=== PATIENT | male | born 1975 | race American Indian/Alaskan Native ===

== ENCOUNTER 2016-12-19 18:46 | Emergency (ER) | payer MEDICAID ==
[2016-12-19 19:02] VITALS: TEMP 98.6
[2016-12-19] MEDS ORDERED: Aspirin 325 mg EC Tablets PO STA (19:03)
[2016-12-19] MEDS ORDERED: Nitroglycerin 2% Ointment Foilpak UD TOP STA (19:03)
[2016-12-19] MEDS ORDERED: Morphine 4 MG/ML VIAL IV STA (19:04)
[2016-12-19] MEDS ORDERED: Nitroglycerin 2% Ointment Foilpak UD TOP ONE (19:43)
[2016-12-19] MEDS ORDERED: Morphine 4 MG/ML VIAL ONE (19:43)
[2016-12-19] MEDS ORDERED: Aspirin 325 mg EC Tablets PO ONE (19:43)
[2016-12-19 19:46] LABS: BASO % 0.3 % (0.0-2.0); EOS % 0.1 % (0.0-4.0); HEMOGLOBIN 14.9 g/dL (12.0-18.0); LYMPH # 0.5 K/uL (1.0-4.3); LYMPH % 6.9 % (20.0-40.0); MEAN CELL VOLUME 91.1 fL (80.0-94.0); MEAN CORPUSCULAR HEMOGLOBIN 29.5 pg (27.0-31.0); MEAN CORPUSCULAR HGB CONC 32.4 g/dL (33.0-37.0); MEAN PLATELET VOLUME 9.5 fL (7.2-11.7); MONO # 0.3 K/uL (0.0-0.8); NEUT % 88.7 % (50.0-75.0); NRBC % 0.1 % (0.0-2.0); PLATELET COUNT 167 K/uL (130-400); RBC 5.06 Mil/uL (4.40-5.90); RED CELL DISTRIBUTION WIDTH 13.2 % (11.5-14.5); WHITE BLOOD COUNT 6.7 K/uL (4.8-10.8)
[2016-12-19 19:53] LABS: ALBUMIN 4.6 g/dL (3.5-5.0)
[2016-12-19 19:54] LABS: D DIMER < 200 ng/mlDDU (0-243); INR 1.1; PARTIAL THROMBOPLASTIN TIME 31 SECONDS (21-34); PROTHROMBIN TIME 12.2 SECONDS (9.7-12.2)
[2016-12-19 19:55] LABS: GFR AFRICAN-AMERICAN > 60; GFR NON-AFRICAN AMERICAN > 60
[2016-12-19 19:56] LABS: ALB/GLOB RATIO 1.2 (1.0-2.1); ALT/SGPT 51 U/L (21-72); AST/SGOT 42 U/L (17-59); BLOOD UREA NITROGEN 8 mg/dL (9-20); CALCIUM 9.3 mg/dl (8.6-10.4)
[2016-12-19 20:02] LABS: URINE BACTERIA RARE (<OCC); URINE BILIRUBIN NEGATIVE (NEGATIVE); URINE BLOOD NEGATIVE (NEGATIVE); URINE CLARITY Clear (Clear); URINE COLOR Yellow (YELLOW); URINE GLUCOSE (UA) NORMAL (Normal); URINE LEUKOCYTE ESTERASE NEG Leu/uL (Negative); URINE NITRATE NEGATIVE (NEGATIVE); URINE PROTEIN 1+ mg/dL (NEGATIVE); URINE UROBILINOGEN NORMAL mg/dL (0.2-1.0)
[2016-12-19 20:07] LABS: BARBITURATES, UR NEGATIVE (NEGATIVE)
[2016-12-19 20:08] LABS: BENZODIAZEPINES, UR NEGATIVE (NEGATIVE)
[2016-12-19 20:09] LABS: B-TYPE NATRIURETIC PEPTIDE 228 pg/mL (0-450)
[2016-12-19 20:11] LABS: OPIATES, UR NEGATIVE (NEGATIVE); PHENCYCLIDINE, UR NEGATIVE (NEGATIVE)
--- NOTE | 2016-12-19 20:13 | C.PDOC ---
History Of Present Illness A 41 y/o M with a Hx of HTN non-compliant with HTN meds, c/o crampy periumbilical pain, nausea, and vomiting since this morning. Denies fever, chills, diarrhea, SOB, lightheadedness, dizziness, palpitations, diaphoresis, or any other complaints. Admits to smoking marijuana today Time Seen by Provider: 12/19/16 19:02 Chief Complaint (Nursing): Abdominal Pain History Per: Patient History/Exam Limitations: no limitations Onset/Duration Of Symptoms: Hrs Current Symptoms Are (Timing): Still Present Severity: Mild Radiation Of Pain To:: None Associated Symptoms: Nausea, Vomiting. denies: Fever, Chills Recent travel outside of the [place]: No Additional History Per: Patient Past Medical History Reviewed: Historical Data, Nursing Documentation, Vital Signs Vital Signs: Last Vital Signs Temp 98.6 F 12/19/16 18:59 Pulse 54 L 12/19/16 19:03 Resp 12 12/19/16 19:03 BP 219/111 H 12/19/16 19:23 Pulse Ox 100 12/19/16 20:59 - Medical History PMH: Asthma, HTN Family History: States: Unknown Family Hx - Social History Hx Alcohol Use: No Hx Substance Use: No - Immunization History Hx Tetanus Toxoid Vaccination: No Hx Influenza Vaccination: Yes Hx Pneumococcal Vaccination: No Review Of Systems Except As Marked, All Systems Reviewed And Found Negative. Constitutional: Negative for: Fever, Chills, Sweats Cardiovascular: Positive for: Chest Pain. Negative for: Palpitations, Light Headedness Respiratory: Negative for: Shortness of Breath Gastrointestinal: Positive for: Nausea, Vomiting. Negative for: Diarrhea Neurological: Negative for: Dizziness Physical Exam - Physical Exam Appears: Non-toxic, No Acute Distress, Other (Poorly responsive, Large male, hypersomulent, arousable to noxious stimuli.) Skin: Warm, Dry Head: Atraumatic, Normacephalic Eye(s): bilateral: Normal Inspection Oral Mucosa: Moist Cardiovascular: Rhythm Regular Respiratory: Normal Breath Sounds, No Accessory Muscle Use, No Rales, No Rhonchi , No Wheezing Gastrointestinal/Abdominal: Soft, Tenderness (Epigastric area), No Guarding, No Rebound Back: Normal Inspection, No CVA Tenderness Neurological/Psych: Oriented x3, Normal Speech, Other (No focal deficit) ED Course And Treatment - Laboratory Results Result Diagrams: 12/19/16 19:42 12/19/16 19:42 Lab Interpretation: Normal (d-dimer neg, trop neg, ua neg, tox + THC) ECG: Interpreted By Me ECG Rhythm: Sinus Rhythm ECG Interpretation: Normal Rate From EC O2 Sat by Pulse Oximetry: 100 (RA) Pulse Ox Interpretation: Normal - Radiology CXR: Interpreted by Me CXR Interpretation: Yes: No Acute Disease, Heart Size (enlarged, ? widened mediastinum) - CT Scan/US CT Head w/o contrast Other Rad Studies (CT/US): Interpreted By Me, Read By Radiologist CT/US Interpretation: IMPRESSION: No acute intracranial abnormality Progress Note: ntp, clonidine. prob venancio due to athleticism, no acute EKG change. Reevaluation Time: 22:33 Reassessment Condition: Improved Medical Decision Making Medical Decision Making: Impression: A 41 y/o M with a Hx of HTN, c/o chest pain, nausea, vomiting since this morning. Plans: -CT Head w/o -CT dissection study -EKG -CXR -Ecotrin -Cataprs -Morphine -Zofran -protonix -Nitro -IV fluids -Reassess poorly controlled HTN, cardiomegaly and bradycardia prob related to athleticism. Start Vasotec and opt f/u. ++ HTN and widened mediastinum on CXR concerning for dissection, study neg. enteritis, prob food related. diminished mental status, normal labs and head CT, prob due to marijuana abuse today. Disposition Doctor Will See Patient In The: Office Counseled Patient/Family Regarding: Studies Performed, Diagnosis - Disposition Disposition: HOME/ ROUTINE Disposition Time: 22:41 Condition: GOOD - Clinical Impression Clinical Impression: Abdominal colic, Hypertension - Scribe Statement The provider has reviewed the documentation as recorded by the Scribe Román grant All medical record entries made by the Christyibe were at my direction and personally dictated by me. I have reviewed the chart and agree that the record accurately reflects my personal performance of the history, physical exam, medical decision making, and the department course for this patient. I have also personally directed, reviewed, and agree with the discharge instructions and disposition.
[2016-12-19] MEDS ORDERED: Iodixanol 320 MG/ML 100 ML BOTTLE IV ONE (20:19)
--- NOTE | 2016-12-19 20:56 | CT ---
EXAM: CT Head Without Intravenous Contrast CLINICAL HISTORY: 41 years old, male; Signs and symptoms; Altered mental status/memory loss; Confusion or disorientation; Additional info: Change of md, ++htn TECHNIQUE: Axial computed tomography images of the head/brain without intravenous contrast. This CT exam was performed using one or more of the following dose reduction techniques: automated exposure control, adjustment of the mA and/or kV according to patient size, and/or use of iterative reconstruction technique. EXAM DATE/TIME: 12/19/2016 8:25 PM COMPARISON: There are no prior studies for comparison. FINDINGS: Brain: Ventricles are normal in size and configuration. There is no midline shift. There are no intra-axial or extra-axial mass lesions or areas of hemorrhage. There are no abnormal fluid collections. Renee-white differentiation is maintained. Ventricles: See above. Bones: Cranial vault is intact. Soft tissues: unremarkable Sinuses: There is no acute sinusitis. Ears and mastoids: Middle ears and mastoids are unremarkable Orbits: Orbital contents are unremarkable. IMPRESSION: No acute intracranial abnormality
[2016-12-19 21:42] LABS: LYMPHOCYTE 10 % (20-40); MONOCYTE 8 % (0-10); NEUTROPHIL 82 % (50-75); PLATELET ESTIMATE NORMAL (NORMAL); TOTAL CELLS COUNTED 100
[2016-12-19 21:44] LABS: ANISOCYTOSIS SLIGHT; LARGE PLATELETS PRESENT
--- NOTE | 2016-12-19 22:01 | CT ---
EXAM: CT Chest Without and With Intravenous Contrast CLINICAL HISTORY: 41 years old, male; Pain; Abdominal pain; Epigastric; Other: Widened mediastinum; Additional info: Cp/widened mediastinum, ++htn, n/v/epigastric TECHNIQUE: Axial computed tomography images of the chest without and with intravenous contrast. This CT exam was performed using one or more of the following dose reduction techniques: automated exposure control, adjustment of the mA and/or kV according to patient size, and/or use of iterative reconstruction technique. Coronal and sagittal reformatted images were created and reviewed. CONTRAST: 100 mL of [id number] administered intravenously. COMPARISON: There are no prior studies for comparison. FINDINGS: Lungs and pleural spaces: Trachea and main bronchi are patent. There is no focal consolidation. There is dependent atelectasis greatest at the lung bases. There are no effusions. Heart and Vasculature: The heart is mildly enlarged.There is trace fluid in pericardial recesses.Pulmonary vessels are unremarkable.There is no aneurysm or dissection. There is minimal atherosclerotic calcification in the aortic arch. There is perfusion of the 3 arch vessels Mediastinum: There is no mediastinal adenopathy. There is no hilar adenopathy. Esophagus is unremarkable. Thyroid: Thyroid is unremarkable Bones/joints: There are no acute osseous abnormalities. There is minimal superior endplate deformity T5, T6, T7. Soft tissues: unremarkable Upper abdomen: Refer to following report for abdominal findings IMPRESSION: No aortic aneurysm or dissection; mild cardiomegaly; no focal pneumonia Additional findings as described above. EXAM: CT Abdomen and Pelvis Without and With Intravenous Contrast CLINICAL HISTORY: 41 years old, male; Pain; Abdominal pain; Epigastric; Other: Widened mediastinum; Additional info: Cp/widened mediastinum, ++htn, n/v/epigastric TECHNIQUE: Axial computed tomography images of the abdomen and pelvis without and with intravenous contrast. This CT exam was performed using one or more of the following dose reduction techniques: automated exposure control, adjustment of the mA and/or kV according to patient size, and/or use of iterative reconstruction technique. Coronal and sagittal reformatted images were created and reviewed. CONTRAST: 100 mL of [id number] administered intravenously. COMPARISON: There are no prior studies for comparison.Exam Date/Time: 12/19/2016 7:30 PM FINDINGS: Lower thorax: Refer to prior report for chest findings ABDOMEN: Liver: unremarkable Gallbladder and bile ducts: unremarkable Pancreas: unremarkable Spleen: unremarkable Adrenals: unremarkable Kidneys and ureters: unremarkable Stomach and bowel: Stomach is partially distended. Rotation is normal. Ere are mildly distended small bowel loops. There is no obstruction. Terminal ileum is unremarkable. Appendix is unremarkable.Colon is incompletely distended which limits evaluation. There is minimal diverticulosis Appendix: See stomach and bowel PELVIS: Bladder: unremarkable Reproductive: Seminal vesicles and prostate are unremarkable. ABDOMEN and PELVIS: Intraperitoneal space: There is no free air or free fluid. Bones/joints: There are no acute osseous abnormalities Soft tissues: There is a small fat containing umbilical hernia. Vasculature: Abdominal aorta is normal in course and caliber. There is minimal atherosclerotic calcification. There is perfusion of all major abdominal aortic branches. Iliacs are unremarkable. Lymph nodes: There is no pathologic adenopathy. IMPRESSION: No acute solid visceral or bowel abnormality, no aortic aneurysm or dissection
[2016-12-19 23:02] VITALS: BP 185/115; PULSE 58; RESP 16; O2SAT 99
--- NOTE | 2016-12-20 10:08 | RAD ---
PROCEDURE: CHEST RADIOGRAPH, 1 VIEW HISTORY: Shortness of breath COMPARISON: None available. FINDINGS: LUNGS: Mild venous congestion. Tortuous aorta. PLEURA: No pneumothorax or pleural fluid seen. CARDIOVASCULAR: As above. OSSEOUS STRUCTURES: No significant abnormalities. VISUALIZED UPPER ABDOMEN: Normal. OTHER FINDINGS: None. IMPRESSION: Tortuous and ectatic aorta. Clinical correlation. Mild venous congestion.
--- NOTE | 2016-12-20 14:01 | CARD ---
APPROVED REPORT EKG Measurement Heart [id number] MD [id number] <Conclusion> Sinus bradycardia with sinus arrhythmia Minimal voltage criteria for LVH, may be normal variant Borderline ECG
== END 2016-12-19 23:02 | disposition home or self-care (01) ==
LOC: C.ER 18:46
DX: R10.84 Generalized abdominal pain (principal); I10 Essential (primary) hypertension
CPT/HCPCS: 70450; 71010; 71275; 74175; 80053; 80320; 80324; 80345; 80346; 80349; 80353; 80358; 80361; 81001; 83880; 83992; 84484; 85025; 85378; 85610; 85730; 93005; 96374; 96375; 99285; C9113; J2270; J2405; Q9967

== ENCOUNTER 2017-08-30 08:57 | Observation (INO) | payer MEDICAID ==
--- NOTE | 2017-08-30 09:53 | C.PDOC ---
History Of Present Illness 42-year-old male, PMHx includes Hypertension, GERD and Asthma, presents to the emergency department with complaints of high blood pressure this morning, and three episodes of non-blood/non-bilious vomiting. Patient was seen in [facility] two days ago for same complaint, and signed out AMA. Patient not compliant with blood pressure meds. Denies headaches, dizziness, nausea/vomiting, numbness/ weakness or chest pain. Time Seen by Provider: 08/30/17 09:36 Chief Complaint (Nursing): High Blood Pressure History Per: Patient History/Exam Limitations: no limitations Past Medical History Reviewed: Historical Data, Nursing Documentation, Vital Signs Vital Signs: Last Vital Signs Temp 98.8 F 08/30/17 15:34 Pulse 87 08/30/17 15:34 Resp 20 08/30/17 15:34 BP 147/92 H 08/30/17 18:20 Pulse Ox 98 08/30/17 18:45 - Medical History PMH: Asthma, HTN Family History: States: No Known Family Hx - Social History Hx Alcohol Use: No Hx Substance Use: Yes - Immunization History Hx Tetanus Toxoid Vaccination: No Hx Influenza Vaccination: Yes Hx Pneumococcal Vaccination: No Review Of Systems Except As Marked, All Systems Reviewed And Found Negative. Constitutional: Negative for: Fever Respiratory: Negative for: Shortness of Breath Gastrointestinal: Positive for: Nausea, Vomiting Skin: Negative for: Rash Neurological: Negative for: Weakness, Numbness, Headache, Dizziness Physical Exam - Physical Exam Appears: Non-toxic, No Acute Distress Skin: Normal Color, Warm, Dry, No Rash Head: Normacephalic Eye(s): bilateral: Normal Inspection, PERRL, EOMI Nose: Normal Oral Mucosa: Moist Neck: Normal ROM Chest: Symmetrical Cardiovascular: Rhythm Regular, No Murmur Respiratory: Normal Breath Sounds, No Accessory Muscle Use Gastrointestinal/Abdominal: Normal Exam, Bowel Sounds Extremity: Normal ROM, No Deformity, No Swelling Neurological/Psych: Oriented x3, Normal Speech ED Course And Treatment - Laboratory Results Result Diagrams: 08/30/17 09:55 08/30/17 09:55 ECG: Interpreted By Me, Viewed By Me ECG Rhythm: Sinus Rhythm ECG Interpretation: No Acute Changes Rate From EC O2 Sat by Pulse Oximetry: 98 (RA) Pulse Ox Interpretation: Normal Critical Care Time - Critical Care Note Total Time (in mins): 40 Documented critical care: time excludes all time spent performing seperately billable procedures. Medical Decision Making Medical Decision Making: Plan: * EKG * Labs * Chest X-Ray * Aspirin, KCl, Pepcid, Labetalol, Zofran * Reassess and Disposition * pt. bp elevated and treated with labetalol Discussed with admitting doctor and will admit to hospital. Disposition Discussed With DrAndi: Abdias Hauser Counseled Patient/Family Regarding: Studies Performed, Diagnosis - Disposition Disposition: HOSPITALIZED Disposition Time: 10:36 Condition: FAIR - Clinical Impression Clinical Impression: Chest pain, Hypertensive urgency - Scribe Statement The provider has reviewed the documentation as recorded by the Scribe (Homar Duran) All medical record entries made by the Scribe were at my direction and personally dictated by me. I have reviewed the chart and agree that the record accurately reflects my personal performance of the history, physical exam, medical decision making, and the department course for this patient. I have also personally directed, reviewed, and agree with the discharge instructions and disposition.
[2017-08-30 10:01] LABS: BASO # 0.1 K/uL (0.0-0.2); BASO % 0.7 % (0.0-2.0); EOS % 0.6 % (0.0-4.0); HEMOGLOBIN 14.6 g/dL (12.0-18.0); LYMPH # 0.6 K/uL (1.0-4.3); LYMPH % 9.2 % (20.0-40.0); MEAN CELL VOLUME 90.4 fL (80.0-94.0); MEAN CORPUSCULAR HEMOGLOBIN 30.7 pg (27.0-31.0); MEAN CORPUSCULAR HGB CONC 33.9 g/dL (33.0-37.0); MEAN PLATELET VOLUME 8.5 fL (7.2-11.7); MONO # 0.6 K/uL (0.0-0.8); MONO % 8.8 % (0.0-10.0); NEUT # 5.5 K/uL (1.8-7.0); NEUT % 80.7 % (50.0-75.0); NRBC % 0.1 % (0.0-2.0); PLATELET COUNT 226 K/uL (130-400); RBC 4.76 Mil/uL (4.40-5.90); RED CELL DISTRIBUTION WIDTH 13.9 % (11.5-14.5); WHITE BLOOD COUNT 6.9 K/uL (4.8-10.8)
[2017-08-30 10:15] LABS: ALB/GLOB RATIO 1.2 (1.0-2.1); ALBUMIN 4.8 g/dL (3.5-5.0); ALT/SGPT 37 U/L (21-72); AST/SGOT 46 U/L (17-59); BLOOD UREA NITROGEN 19 mg/dL (9-20); CALCIUM 9.2 mg/dl (8.6-10.4); GFR AFRICAN-AMERICAN > 60; GFR NON-AFRICAN AMERICAN > 60; LIPASE 48 U/L (23-300)
[2017-08-30] MEDS ORDERED: Labetalol 5 mg/ml Inj 20ML IV STA (10:22)
[2017-08-30 10:25] LABS: B-TYPE NATRIURETIC PEPTIDE 45.4 pg/mL (0-450)
[2017-08-30] MEDS ORDERED: Potassium Chloride 20 mEq ER Tab PO SCH (10:30)
[2017-08-30] MEDS ORDERED: Potassium Chloride 20 mEq ER Tab PO ONE (10:37)
--- NOTE | 2017-08-30 10:38 | RAD ---
HISTORY: chest pain COMPARISON: Chest x-ray performed 12/19/16 TECHNIQUE: Chest, one view. FINDINGS: Examination limited by habitus. LUNGS: No focal consolidation. Please note that chest x-ray has limited sensitivity for the detection of pulmonary masses. PLEURA: No significant pleural effusion identified. No definite pneumothorax . CARDIOVASCULAR: Heart size appears within normal limits. OSSEOUS STRUCTURES: No acute osseous abnormality identified. VISUALIZED UPPER ABDOMEN: Unremarkable. OTHER FINDINGS: None. IMPRESSION: No focal consolidation identified.
[2017-08-30 10:48] LABS: EOSINOPHIL 1 % (0-4); LYMPHOCYTE 9 % (20-40); MONOCYTE 5 % (0-10); NEUTROPHIL 85 % (50-75); PLATELET ESTIMATE NORMAL (NORMAL); TOTAL CELLS COUNTED 100
[2017-08-30] MEDS ORDERED: Labetalol 25mg/5ml Syringe IVP STA (11:16)
[2017-08-30 11:31] LABS: BARBITURATES, UR NEGATIVE (NEGATIVE); BENZODIAZEPINES, UR NEGATIVE (NEGATIVE); OPIATES, UR NEGATIVE (NEGATIVE); PHENCYCLIDINE, UR NEGATIVE (NEGATIVE)
[2017-08-30] MEDS: Nitroglycerin 2% Ointment Foilpak UD TOP PRN (14:38)
[2017-08-30 14:48] LABS: HDL CHOLESTEROL 44 mg/dL (30-70)
[2017-08-30 14:59] LABS: LDL CHOLESTEROL 124 mg/dL (0-129)
[2017-08-30 15:01] LABS: CK-MB 0.95 ng/mL (0.0-3.38)
[2017-08-30] MEDS: Potassium Chloride 20 mEq ER Tab PO SCH (20:15)
[2017-08-30 23:26] LABS: CK-MB 0.75 ng/mL (0.0-3.38)
--- NOTE | 2017-08-30 23:59 | CP.PCM.HP ---
History of Present Illness - History of Present Illness History of Present Illness: Chief Complaint : Chest pain, High Blood Pressure History Of Present Illness 42-year-old AA male, PMHx includes Hypertension, GERD and Asthma,non complaint to diet and medication and he drinks ETOH excessively he denies any other substance abuse, presents to the emergency department with complaints of left chest wall dull pain since yesterday, he checked his B.P to be high this morning, and three episodes of non-blood/non-bilious vomiting. Patient was seen in [facility] two days ago for same complaint, and signed out AMA. Patient not compliant with blood pressure meds. Denies headaches, dizziness, nausea/vomiting , numbness/weakness or chest pain. Present on Admission - Present on Admission Any Indicators Present on Admission: Yes Past Patient History - Infectious Disease Hx of Infectious Diseases: None - Past Social History Smoking Status: Current Some Days Smoker - CARDIAC Hx Hypertension: Yes - PULMONARY Hx Asthma: Yes - MUSCULOSKELETAL/RHEUMATOLOGICAL Hx Falls: No - PSYCHIATRIC Hx Substance Use: Yes - SURGICAL HISTORY Hx Surgeries: Yes Hx Herniorrhaphy: Yes - ANESTHESIA Hx Anesthesia: Yes Meds Home Medications: Home Medication List Medication Instructions Recorded Confirmed Type Losartan [Cozaar] 50 mg PO DAILY #30 tab 08/31/17 Rx diltiaZEM CD [Cardizem CD] 120 mg PO DAILY #30 cap 08/31/17 Rx hydrALAZINE [Apresoline] 50 mg PO Q8 #90 tab 08/31/17 Rx Allergies/Adverse Reactions: Allergies Allergy/AdvReac Type Severity Reaction Status Date / Time FISH Allergy Verified 08/30/17 09:24 shellfish derived Allergy Verified 08/30/17 09:24 Physical Exam - Constitutional Appears: No Acute Distress - Head Exam Head Exam: ATRAUMATIC, NORMAL INSPECTION, NORMOCEPHALIC - Eye Exam Eye Exam: EOMI, Normal appearance, PERRL Pupil Exam: NORMAL ACCOMODATION, PERRL - Respiratory Exam Respiratory Exam: Clear to Auscultation Bilateral, NORMAL BREATHING PATTERN - Cardiovascular Exam Cardiovascular Exam: REGULAR RHYTHM, +S1, +S2, +S4 - GI/Abdominal Exam GI & Abdominal Exam: Normal Bowel Sounds, Soft. absent: Tenderness - Neurological Exam Neurological exam: Alert, CN II-XII Intact, Normal Gait, Oriented x3, Reflexes Normal - Psychiatric Exam Psychiatric exam: Normal Affect, Normal Mood - Skin Skin Exam: Dry, Intact, Normal Color, Warm Results - Vital Signs Recent Vital Signs: Last Vital Signs Temp 98.8 F 08/30/17 15:34 Pulse 99 H 08/30/17 22:53 Resp 20 08/30/17 15:34 BP 147/92 H 08/30/17 18:20 Pulse Ox 98 08/30/17 18:46 - Labs Result Diagrams: 08/30/17 09:55 08/31/17 07:12 Labs: Laboratory Results - last 24 hr 08/30/17 08/30/17 08/30/17 09:40 09:55 09:55 WBC 6.9 RBC 4.76 Hgb 14.6 Hct 43.0 MCV 90.4 MCH 30.7 MCHC 33.9 RDW 13.9 Plt Count 226 MPV 8.5 Neut % (Auto) 80.7 H Lymph % (Auto) 9.2 L Hyde % (Auto) 8.8 Eos % (Auto) 0.6 Baso % (Auto) 0.7 Neut # (Auto) 5.5 Lymph # (Auto) 0.6 L Hyde # (Auto) 0.6 Eos # (Auto) 0.0 Baso # (Auto) 0.1 Neutrophils % (Manual) 85 H Lymphocytes % (Manual) 9 L Monocytes % (Manual) 5 Eosinophils % (Manual) 1 Platelet Estimate Normal RBC Morphology Normal Sodium 138 Potassium 3.1 L Chloride 99 Carbon Dioxide 22 Anion Gap 21 H BUN 19 Creatinine 1.2 Est GFR ( Amer) > 60 Est GFR (Non-Af Amer) > 60 POC Glucose (mg/dL) 108 Random Glucose 125 H Calcium 9.2 Total Bilirubin 1.3 AST 46 ALT 37 Alkaline Phosphatase 84 Total Creatine Kinase CK-MB (Mass) Troponin I < 0.0120 NT-Pro-B Natriuret Pep 45.4 Total Protein 8.7 H Albumin 4.8 Globulin 3.9 Albumin/Globulin Ratio 1.2 Triglycerides Cholesterol LDL Cholesterol Direct HDL Cholesterol Lipase 48 Urine Opiates Screen Urine Methadone Screen Ur Barbiturates Screen Ur Phencyclidine Scrn Ur Amphetamines Screen U Benzodiazepines Scrn U Oth Cocaine Metabols U Cannabinoids Screen 08/30/17 08/30/17 08/30/17 10:57 14:11 22:57 WBC RBC Hgb Hct MCV MCH MCHC RDW Plt Count MPV Neut % (Auto) Lymph % (Auto) Hyde % (Auto) Eos % (Auto) Baso % (Auto) Neut # (Auto) Lymph # (Auto) Hyde # (Auto) Eos # (Auto) Baso # (Auto) Neutrophils % (Manual) Lymphocytes % (Manual) Monocytes % (Manual) Eosinophils % (Manual) Platelet Estimate RBC Morphology Sodium Potassium Chloride Carbon Dioxide Anion Gap BUN Creatinine Est GFR ( Amer) Est GFR (Non-Af Amer) POC Glucose (mg/dL) Random Glucose Calcium Total Bilirubin AST ALT Alkaline Phosphatase Total Creatine Kinase 212 H 196 H CK-MB (Mass) 0.95 0.75 Troponin I < 0.0120 < 0.0120 NT-Pro-B Natriuret Pep Total Protein Albumin Globulin Albumin/Globulin Ratio Triglycerides 53 Cholesterol 195 LDL Cholesterol Direct 124 HDL Cholesterol 44 Lipase Urine Opiates Screen Negative Urine Methadone Screen Negative Ur Barbiturates Screen Negative Ur Phencyclidine Scrn Negative Ur Amphetamines Screen Negative U Benzodiazepines Scrn Negative U Oth Cocaine Metabols Negative U Cannabinoids Screen Positive H Assessment & Plan (1) Chest pain Status: Acute (2) Hypertensive urgency Assessment and Plan: primary HTn changed into accelerated HTN due to non compliance Status: Acute
[2017-08-31] MEDS: Nitroglycerin 2% Ointment Foilpak UD TOP PRN (07:04)
[2017-08-31 07:39] LABS: BLOOD UREA NITROGEN 16 mg/dL (9-20); CALCIUM 9.1 mg/dl (8.6-10.4); GFR AFRICAN-AMERICAN > 60; GFR NON-AFRICAN AMERICAN > 60
[2017-08-31 08:02] VITALS: RESP 18; TEMP 98.7; O2SAT 99
[2017-08-31] MEDS: Potassium Chloride 20 mEq ER Tab PO SCH (09:48)
[2017-08-31] MEDS ORDERED: Potassium Chloride 20 mEq ER Tab PO ONE (10:00)
[2017-08-31] MEDS ORDERED: diltiaZEM 120 mg/24 Hours CD Cap PO SCH (11:30)
[2017-08-31] MEDS: Potassium Chloride 20 mEq/15 ml LIQ UD PO SCH ×3 (11:54→13:43)
[2017-08-31 12:09] VITALS: BP 144/97
--- NOTE | 2017-08-31 12:14 | CARD ---
APPROVED REPORT EKG Measurement Heart [id number] VA [id number] <Conclusion> Normal sinus rhythm Possible Left atrial enlargement Prolonged QT Abnormal ECG
[2017-08-31 13:04] VITALS: PULSE 117
[2017-08-31 14:53] LABS: CK-MB 0.57 ng/mL (0.0-3.38)
--- NOTE | 2017-08-31 23:08 | CP.PCM.DIS ---
Provider - Provider Date of Admission: 08/30/17 10:34 Attending physician: Abdias Hauser MD Hospital Course - Lab Results Lab Results: Most Recent Lab Values WBC 6.9 K/uL (4.8-10.8) 08/30/17 09:55 RBC 4.76 Mil/uL (4.40-5.90) 08/30/17 09:55 Hgb 14.6 g/dL (12.0-18.0) 08/30/17 09:55 Hct 43.0 % (35.0-51.0) 08/30/17 09:55 MCV 90.4 fL (80.0-94.0) 08/30/17 09:55 MCH 30.7 pg (27.0-31.0) 08/30/17 09:55 MCHC 33.9 g/dL (33.0-37.0) 08/30/17 09:55 RDW 13.9 % (11.5-14.5) 08/30/17 09:55 Plt Count 226 K/uL (130-400) 08/30/17 09:55 MPV 8.5 fL (7.2-11.7) 08/30/17 09:55 Neut % (Auto) 80.7 % (50.0-75.0) H 08/30/17 09:55 Lymph % (Auto) 9.2 % (20.0-40.0) L 08/30/17 09:55 Brantley % (Auto) 8.8 % (0.0-10.0) 08/30/17 09:55 Eos % (Auto) 0.6 % (0.0-4.0) 08/30/17 09:55 Baso % (Auto) 0.7 % (0.0-2.0) 08/30/17 09:55 Neut # (Auto) 5.5 K/uL (1.8-7.0) 08/30/17 09:55 Lymph # (Auto) 0.6 K/uL (1.0-4.3) L 08/30/17 09:55 Brantley # (Auto) 0.6 K/uL (0.0-0.8) 08/30/17 09:55 Eos # (Auto) 0.0 K/uL (0.0-0.7) 08/30/17 09:55 Baso # (Auto) 0.1 K/uL (0.0-0.2) 08/30/17 09:55 Neutrophils % (Manual) 85 % (50-75) H 08/30/17 09:55 Lymphocytes % (Manual) 9 % (20-40) L 08/30/17 09:55 Monocytes % (Manual) 5 % (0-10) 08/30/17 09:55 Eosinophils % (Manual) 1 % (0-4) 08/30/17 09:55 Platelet Estimate Normal (NORMAL) 08/30/17 09:55 RBC Morphology Normal 08/30/17 09:55 Sodium 136 mmol/L (132-148) 08/31/17 07:12 Potassium 3.3 mmol/L (3.6-5.2) L 08/31/17 07:12 Chloride 97 mmol/L (98-107) L 08/31/17 07:12 Carbon Dioxide 26 mmol/L (22-30) 08/31/17 07:12 Anion Gap 17 (10-20) 08/31/17 07:12 BUN 16 mg/dL (9-20) 08/31/17 07:12 Creatinine 1.1 mg/dL (0.8-1.5) 08/31/17 07:12 Est GFR ( Amer) > 60 08/31/17 07:12 Est GFR (Non-Af Amer) > 60 08/31/17 07:12 POC Glucose (mg/dL) 108 mg/dL (65-110) 08/30/17 09:40 Random Glucose 134 mg/dL (75-110) H 08/31/17 07:12 Calcium 9.1 mg/dl (8.6-10.4) 08/31/17 07:12 Total Bilirubin 1.3 mg/dL (0.2-1.3) 08/30/17 09:55 AST 46 U/L (17-59) 08/30/17 09:55 ALT 37 U/L (21-72) 08/30/17 09:55 Alkaline Phosphatase 84 U/L (38-126) 08/30/17 09:55 Total Creatine Kinase 135 U/L (55-170) 08/31/17 14:15 CK-MB (Mass) 0.57 ng/mL (0.0-3.38) 08/31/17 14:15 Troponin I < 0.0120 ng/mL (0.00-0.120) 08/31/17 14:15 NT-Pro-B Natriuret Pep 45.4 pg/mL (0-450) 08/30/17 09:55 Total Protein 8.7 g/dL (6.3-8.3) H 08/30/17 09:55 Albumin 4.8 g/dL (3.5-5.0) 08/30/17 09:55 Globulin 3.9 gm/dL (2.2-3.9) 08/30/17 09:55 Albumin/Globulin Ratio 1.2 (1.0-2.1) 08/30/17 09:55 Triglycerides 53 mg/dL (0-149) 08/30/17 14:11 Cholesterol 195 mg/dL (0-199) 08/30/17 14:11 LDL Cholesterol Direct 124 mg/dL (0-129) 08/30/17 14:11 HDL Cholesterol 44 mg/dL (30-70) 08/30/17 14:11 Lipase 48 U/L (23-300) 08/30/17 09:55 Urine Opiates Screen Negative (NEGATIVE) 08/30/17 10:57 Urine Methadone Screen Negative (NEGATIVE) 08/30/17 10:57 Ur Barbiturates Screen Negative (NEGATIVE) 08/30/17 10:57 Ur Phencyclidine Scrn Negative (NEGATIVE) 08/30/17 10:57 Ur Amphetamines Screen Negative (NEGATIVE) 08/30/17 10:57 U Benzodiazepines Scrn Negative (NEGATIVE) 08/30/17 10:57 U Oth Cocaine Metabols Negative (NEGATIVE) 08/30/17 10:57 U Cannabinoids Screen Positive (NEGATIVE) H 08/30/17 10:57 - Hospital Course Hospital Course: Pt is feeling better, is for discharge Discharge Plan - Discharge Medications Prescriptions: hydrALAZINE [Apresoline] 50 mg PO Q8 #90 tab diltiaZEM CD [Cardizem CD] 120 mg PO DAILY #30 cap Losartan [Cozaar] 50 mg PO DAILY #30 tab - Follow Up Plan Condition: FAIR Disposition: AGAINST MEDICAL ADVICE
--- NOTE | 2017-09-01 01:51 | CON ---
DATE: REASON FOR CONSULTATION: Uncontrolled hypertension as well as excess burning chest pain. 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 The patient is 42 years old male, who had history of hypertension who was treated as an outpatient for hypertension, with Norvasc and hydralazine by Dr. Vickers. The patient was admitted to [facility] because of abdominal pain. He signed against medical advice and came to [facility] with the same discomfort. The patient and his son denied any abdominal pain, but he pointed to the left subcostal region as the site where he experiences abdominal pain. The patient denies any nausea or vomiting. The patient denies any hematuria or dysuria. The patient did report some retrosternal burning sensation which attributed to his acids. The patient was on omeprazole therapy at home. REVIEW OF SYSTEMS: No fever or chills. No dizziness, no syncope. No retrosternal chest tightness. MEDICATIONS: Current hospital medications: Hydralazine 50 mg q.8 hours, Cardizem CD 120 mg once a day, Cozaar 100 mg once a day, K-Dur 20 mEq daily, Pepcid 20 mg p.o. twice a day, nitroglycerin paste 1 inch q.6 hours. PHYSICAL EXAMINATION: GENERAL: The patient is a middle-aged male, who does not appear to be in any acute distress. VITAL SIGNS: Blood pressure 144/97, heart rate 117, temperature 98.7, respirations 18. HEENT: Normocephalic. NECK: No JVD. CHEST: Clear. HEART: S1 and S2 regular. ABDOMEN: Soft. EXTREMITIES: No edema. Urine drug screen is positive for cannabinoids. SMA-7: Sodium 136, potassium 3.3, chloride 97, CO2 of 26, glucose 134, BUN 16, creatinine 1.1. Four sets of troponins are negative. Lipid profile is within normal limits. EKG revealed sinus rhythm at the rate of 97. Chest x-ray was unremarkable. ASSESSMENT: 1. Abdominal pain. 2. Uncontrolled hypertension. 3. Hypokalemia. RECOMMENDATIONS: Continue hydralazine, Cardizem, Cozaar, subcutaneous heparin, oral K-Dur replacement. I will follow echocardiographic study scheduled to be performed today. Javier Blanc MD
--- NOTE | 2017-09-01 12:58 | CARD ---
APPROVED REPORT EXAM: Two-dimensional and M-mode echocardiogram with Doppler and color Doppler. Other Information Quality : GoodRhythm : INDICATION Chest Pain LVH RISK FACTORS Hypertension 2D DIMENSIONS IVSd1.7 (0.7-1.1cm)LVDd3.5 (3.9-5.9cm) PWd0.8 (0.7-1.1cm)LVDs2.3 (2.5-4.0cm) FS (%) 34.6 %LVEF (%)64.8 (>50%) M-Mode DIMENSIONS Left Atrium (MM)3.23 (2.5-4.0cm)Aortic Root4.52 (2.2-3.7cm) Aortic Cusp Exc.2.72 (1.5-2.0cm) Mitral Valve MV E Udrhxxff78.0cm/sMV A Gnwqztdk35.0cm/sE/A ratio0.7 TDI E/Lateral E'0.0E/Medial E'0.0 Tricuspid Valve TR Peak Twehcsor287py/sTR Peak Gr.99oyKuNQOT98vsQq LEFT VENTRICLE The left ventricle is normal size. There is mild concentric left ventricular hypertrophy. The left ventricular function is normal. The left ventricular ejection fraction is within the normal range. There is normal LV segmental wall motion. The left ventricular diastolic function is normal. Transmitral Doppler flow pattern is Grade I-abnormal relaxation pattern. No left ventricle thrombus noted on this study. There is no ventricular septal defect visualized. There is no left ventricular aneurysm. There is no mass noted in the left ventricle. RIGHT VENTRICLE The right ventricle is normal size. There is normal right ventricular wall thickness. The right ventricular systolic function is normal. ATRIA The left atrium size is normal. The right atrium size is normal. The interatrial septum is intact with no evidence for an atrial septal defect. AORTIC VALVE The aortic valve is normal in structure. No aortic regurgitation is present. There is no aortic valvular stenosis. There is no aortic valvular vegetation. MITRAL VALVE The mitral valve is normal in structure. There is no mitral valve stenosis. There is no mitral valve regurgitation noted. TRICUSPID VALVE The tricuspid valve is normal in structure. There is no tricuspid valve regurgitation noted. PULMONIC VALVE The pulmonary valve is normal in structure. There is no pulmonic valvular regurgitation. GREAT VESSELS The aortic root is normal in size. The ascending aorta is normal in size. The pulmonary artery is normal. The IVC is normal in size and collapses >50% with inspiration. PERICARDIAL EFFUSION There is no pericardial effusion. <Conclusion> There is mild concentric left ventricular hypertrophy. The left ventricular diastolic function is normal. Transmitral Doppler flow pattern is Grade I-abnormal relaxation pattern. LVEF IS 65%.
== END 2017-08-31 15:15 | disposition left against medical advice (07) ==
LOC: C.ER 08:57 → C.9E 10:34 → C.6T 10:51
PROVIDERS: ADMIT Internal Medicine; ATTEND Internal Medicine
DX: I16.0 Hypertensive urgency (principal); I15.8 Other secondary hypertension; E87.6 Hypokalemia; J45.909 Unspecified asthma, uncomplicated; K21.9 Gastro-esophageal reflux disease without esophagitis; Z87.891 Personal history of nicotine dependence; Z91.19 Patient's noncompliance with other medical treatment and regimen
CPT/HCPCS: 36415; 71045; 80048; 80053; 80061; 80324; 80345; 80346; 80349; 80353; 80358; 80361; 82948; 83690; 83880; 83992; 84484; 85025; 93005; 93306; 96374; 96375; 96376; 99285; G0378; J2405

== ENCOUNTER 2018-02-15 12:54 | Observation (INO) | payer MEDICAID ==
[2018-02-15] MEDS ORDERED: Sodium Chloride 0.9% 1,000 ML IV ONE ×2 (13:30→13:31)
--- NOTE | 2018-02-15 13:36 | C.PDOC ---
History Of Present Illness 42 y/o male brought in by EMS for evaluation of dizziness and vomiting, that began suddenly while patient was at work. Patient states that he woke up feeling fine today. Otherwise he denies any SOB, chest pain, numbness, weakness , tingling, severe headache, or visual changes. As per EMS, patient was found twitching and with pinpoint pupils, so Narcan 0.4mg was given en route. Time Seen by Provider: 02/15/18 13:21 Chief Complaint (Nursing): Substance Abuse History Per: Patient History/Exam Limitations: no limitations Onset/Duration Of Symptoms: Hrs Current Symptoms Are (Timing): Still Present Past Medical History Reviewed: Historical Data, Nursing Documentation, Vital Signs Vital Signs: Last Vital Signs Temp 98.3 F 02/15/18 16:41 Pulse 74 02/15/18 16:41 Resp 20 02/15/18 16:41 BP 188/121 H 02/15/18 16:41 Pulse Ox 99 02/15/18 18:33 - Medical History PMH: Asthma, HTN Surgical History: Hernia Repair Family History: States: Unknown Family Hx - Social History Hx Tobacco Use: Yes Hx Alcohol Use: No Hx Substance Use: Yes (marijuana) - Immunization History Hx Tetanus Toxoid Vaccination: No Hx Influenza Vaccination: Yes Hx Pneumococcal Vaccination: No Review Of Systems Constitutional: Positive for: Sweats. Negative for: Fever Cardiovascular: Negative for: Chest Pain Respiratory: Negative for: Shortness of Breath Gastrointestinal: Positive for: Nausea, Vomiting. Negative for: Hematemesis Neurological: Positive for: Dizziness. Negative for: Weakness, Numbness, Incoordination, Headache Physical Exam - Physical Exam Appears: Non-toxic, No Acute Distress, Other (Patient speaking in full sentences , complaining of nausea) Skin: Normal Color, Warm, Diaphoretic Head: Atraumatic, Normacephalic Eye(s): bilateral: Normal Inspection Nose: Normal Oral Mucosa: Moist Neck: Supple Chest: Symmetrical Cardiovascular: Rhythm Regular, No Murmur Respiratory: Normal Breath Sounds, No Rales, No Rhonchi, No Wheezing Gastrointestinal/Abdominal: Bowel Sounds (active), Soft, No Tenderness Back: Normal Inspection, No Vertebral Tenderness Extremity: Bilateral: Atraumatic, Normal Color And Temperature, Normal ROM Pulses: Left Dorsalis Pedis: Normal, Right Dorsalis Pedis: Normal Neurological/Psych: Oriented x3, Normal Speech ED Course And Treatment - Laboratory Results Result Diagrams: 02/15/18 13:45 02/15/18 13:45 Lab Interpretation: No Acute Changes ECG: Interpreted By Me ECG Rhythm: Sinus Rhythm ECG Interpretation: Normal, No Acute Changes Rate From EC O2 Sat by Pulse Oximetry: 99 (RA) Pulse Ox Interpretation: Normal - Radiology CXR: Interpreted by Me CXR Interpretation: Yes: No Acute Disease - Other Rad CXR X-Ray: Viewed By Me, Read By Radiologist Interpretation: FINDINGS: LUNGS: Clear. PLEURA: No pneumothorax or pleural fluid seen. CARDIOVASCULAR: Normal. OSSEOUS STRUCTURES: Unchanged. VISUALIZED UPPER ABDOMEN: Normal. OTHER FINDINGS: None. IMPRESSION: No active disease. Progress Note: Patient treated with IVF NSS x 2 liters, zofran and maalox. Treated with hydralizine 50 mg PO. Patient vomiting treated with zofran 4 mg IV. Treated with labetalol 20 mg IV for continued elevated B/P Reassessment Condition: Unchanged - Physician Consult Information Physician Contacted: Abdias Hauser Outcome Of Conversation: admit Medical Decision Making Medical Decision Making: Impression: 42 year old with complaints of nausea, vomiting, dizziness Initial Plan: --CMP --UDS --CBC --reticulocyte count --Urinalysis --IV Fluids --IV Zofran, 4 mg Disposition Discussed With : Abdias Hauser Doctor Will See Patient In The: Hospital - Disposition Disposition: HOSPITALIZED Disposition Time: 18:00 Condition: STABLE - POA Present On Arrival: None - Clinical Impression Clinical Impression: Hypertension, Chest pain - 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 - Scribe Statement The provider has reviewed the documentation as recorded by the Scribe (Talisha Rosa) All medical record entries made by the Scribe were at my direction and personally dictated by me. I have reviewed the chart and agree that the record accurately reflects my personal performance of the history, physical exam, medical decision making, and the department course for this patient. I have also personally directed, reviewed, and agree with the discharge instructions and disposition. Decision To Admit - Pt Status Changed To: Hospital Disposition Of: Observation - . Bed Request Type: Telemetry Admitting Physician: Abdias Hauser Patient Diagnosis: Hypertension, Chest pain
[2018-02-15 13:53] LABS: BASO % 0.5 % (0.0-2.0); EOS % 0.1 % (0.0-4.0); HEMOGLOBIN 14.8 g/dL (12.0-18.0); LYMPH # 0.7 K/uL (1.0-4.3); LYMPH % 12.3 % (20.0-40.0); MEAN CELL VOLUME 89.7 fL (80.0-94.0); MEAN CORPUSCULAR HEMOGLOBIN 30.6 pg (27.0-31.0); MEAN CORPUSCULAR HGB CONC 34.1 g/dL (33.0-37.0); MONO # 0.4 K/uL (0.0-0.8); MONO % 7.3 % (0.0-10.0); NEUT # 4.8 K/uL (1.8-7.0); NEUT % 79.8 % (50.0-75.0); RBC 4.85 Mil/uL (4.40-5.90); RED CELL DISTRIBUTION WIDTH 13.8 % (11.5-14.5); WHITE BLOOD COUNT 6.1 K/uL (4.8-10.8)
[2018-02-15] MEDS ORDERED: Sodium Chloride 0.9% 2,000 ML ONE (13:53)
[2018-02-15 13:55] LABS: URINE BILIRUBIN NEGATIVE (NEGATIVE); URINE BLOOD NEGATIVE (NEGATIVE); URINE CLARITY Clear (Clear); URINE COLOR Yellow (YELLOW); URINE GLUCOSE (UA) NORMAL (Normal); URINE LEUKOCYTE ESTERASE NEG Leu/uL (Negative); URINE PROTEIN 1+ mg/dL (NEGATIVE); URINE UROBILINOGEN NORMAL mg/dL (0.2-1.0)
[2018-02-15 14:02] LABS: ALB/GLOB RATIO 1.3 (1.0-2.1); ALBUMIN 4.8 g/dL (3.5-5.0); ALT/SGPT 47 U/L (21-72); AST/SGOT 39 U/L (17-59); BLOOD UREA NITROGEN 12 mg/dL (9-20); CALCIUM 9.9 mg/dl (8.6-10.4); GFR NON-AFRICAN AMERICAN > 60
[2018-02-15 14:18] LABS: BARBITURATES, UR NEGATIVE (NEGATIVE); BENZODIAZEPINES, UR NEGATIVE (NEGATIVE); OPIATES, UR NEGATIVE (NEGATIVE); PHENCYCLIDINE, UR NEGATIVE (NEGATIVE)
--- NOTE | 2018-02-15 14:18 | RAD ---
Date of service: 02/15/2018 PROCEDURE: CHEST RADIOGRAPH, 1 VIEW HISTORY: SOB COMPARISON: Chest radiograph dated 08/30/2017 FINDINGS: LUNGS: Clear. PLEURA: No pneumothorax or pleural fluid seen. CARDIOVASCULAR: Normal. OSSEOUS STRUCTURES: Unchanged. VISUALIZED UPPER ABDOMEN: Normal. OTHER FINDINGS: None. IMPRESSION: No active disease.
[2018-02-15] MEDS ORDERED: Alum-Mag Hydrox-Simethicone Susp (30 mL) PO STA (16:02)
[2018-02-15] MEDS ORDERED: Aluminum Hydroxide/Magnesium Hydroxide Susp (30 mL) ONE (16:10)
[2018-02-15] MEDS ORDERED: Labetalol 25mg/5ml Syringe IV STA (16:56)
[2018-02-15] MEDS ORDERED: Nitroglycerin 2% Ointment Foilpak UD TOP ONE ×2 (17:45→17:53)
[2018-02-15] MEDS ORDERED: Dextrose 5%-0.225% NS 1,000 ML IV SCH (19:30)
--- NOTE | 2018-02-15 19:39 | CP.PCM.HP ---
Past Patient History - Infectious Disease Hx of Infectious Diseases: None - Past Social History Smoking Status: Current Some Days Smoker - CARDIAC Hx Hypertension: Yes - PULMONARY Hx Asthma: Yes - MUSCULOSKELETAL/RHEUMATOLOGICAL Hx Falls: No - PSYCHIATRIC Hx Substance Use: Yes (marijuana) - SURGICAL HISTORY Hx Surgeries: Yes Hx Herniorrhaphy: Yes - ANESTHESIA Hx Anesthesia: Yes Meds Allergies/Adverse Reactions: Allergies Allergy/AdvReac Type Severity Reaction Status Date / Time FISH Allergy Verified 08/30/17 09:24 shellfish derived Allergy Verified 08/30/17 09:24 Results - Vital Signs Recent Vital Signs: Last Vital Signs Temp 98.2 F 02/15/18 19:30 Pulse 77 02/15/18 19:30 Resp 22 02/15/18 19:30 BP 177/106 H 02/15/18 19:30 Pulse Ox 97 02/15/18 19:30 - Labs Result Diagrams: 02/15/18 13:45 02/15/18 13:45 Labs: Laboratory Results - last 24 hr 02/15/18 02/15/18 02/15/18 13:45 13:45 13:45 WBC 6.1 RBC 4.85 Hgb 14.8 Hct 43.5 MCV 89.7 MCH 30.6 MCHC 34.1 RDW 13.8 Plt Count 213 MPV 9.0 Neut % (Auto) 79.8 H Lymph % (Auto) 12.3 L [place] % (Auto) 7.3 Eos % (Auto) 0.1 Baso % (Auto) 0.5 Neut # (Auto) 4.8 Lymph # (Auto) 0.7 L [place] # (Auto) 0.4 Eos # (Auto) 0.0 Baso # (Auto) 0.0 Retic Count 1.2 Sodium 143 Potassium 3.4 L Chloride 104 Carbon Dioxide 24 Anion Gap 18 BUN 12 Creatinine 0.9 Est GFR ( Amer) > 60 Est GFR (Non-Af Amer) > 60 Random Glucose 125 H Calcium 9.9 Total Bilirubin 0.9 AST 39 ALT 47 Alkaline Phosphatase 89 Total Creatine Kinase CK-MB (Mass) Troponin I Total Protein 8.5 H Albumin 4.8 Globulin 3.6 Albumin/Globulin Ratio 1.3 Urine Color Yellow Urine Clarity Clear Urine pH 9.0 Ur Specific [place] 1.018 Urine Protein 1+ H Urine Glucose (UA) Normal Urine Ketones Negative Urine Blood Negative Urine Nitrate Negative Urine Bilirubin Negative Urine Urobilinogen Normal Ur Leukocyte Esterase Neg Urine WBC (Auto) 1 Urine RBC (Auto) < 1 Urine Opiates Screen Urine Methadone Screen Ur Barbiturates Screen Ur Phencyclidine Scrn Ur Amphetamines Screen U Benzodiazepines Scrn U Oth Cocaine Metabols U Cannabinoids Screen 02/15/18 02/15/18 02/15/18 13:45 14:13 18:07 WBC RBC Hgb Hct MCV MCH MCHC RDW Plt Count MPV Neut % (Auto) Lymph % (Auto) [place] % (Auto) Eos % (Auto) Baso % (Auto) Neut # (Auto) Lymph # (Auto) [place] # (Auto) Eos # (Auto) Baso # (Auto) Retic Count Sodium Potassium Chloride Carbon Dioxide Anion Gap BUN Creatinine Est GFR ( Amer) Est GFR (Non-Af Amer) Random Glucose Calcium Total Bilirubin AST ALT Alkaline Phosphatase Total Creatine Kinase 204 H CK-MB (Mass) 0.90 Troponin I < 0.0120 < 0.0120 Total Protein Albumin Globulin Albumin/Globulin Ratio Urine Color Urine Clarity Urine pH Ur Specific [place] Urine Protein Urine Glucose (UA) Urine Ketones Urine Blood Urine Nitrate Urine Bilirubin Urine Urobilinogen Ur Leukocyte Esterase Urine WBC (Auto) Urine RBC (Auto) Urine Opiates Screen Negative Urine Methadone Screen Negative Ur Barbiturates Screen Negative Ur Phencyclidine Scrn Negative Ur Amphetamines Screen Negative U Benzodiazepines Scrn Negative U Oth Cocaine Metabols Negative U Cannabinoids Screen Positive H
[2018-02-15] MEDS ORDERED: Dextrose 5%/0.33% NS 1,000 ML IV ONE (21:18)
[2018-02-15 21:47] LABS: AMYLASE 144 U/L (30-110); LIPASE 44 U/L (23-300)
[2018-02-15 22:00] VITALS: RESP 20; TEMP 98.7; O2SAT 99
--- NOTE | 2018-02-16 06:48 | CT ---
Date of service: 02/15/2018 PROCEDURE: CT HEAD WITHOUT CONTRAST. HISTORY: headache COMPARISON: None available. TECHNIQUE: Axial computed tomography images were obtained through the head/brain without intravenous contrast. Radiation dose: Total exam DLP = 893 mGy-cm. This CT exam was performed using one or more of the following dose reduction techniques: Automated exposure control, adjustment of the mA and/or kV according to patient size, and/or use of iterative reconstruction technique. FINDINGS: HEMORRHAGE: No intracranial hemorrhage. BRAIN: No mass effect or edema. No atrophy or chronic microvascular ischemic changes. Punctate hypodensities in the bilateral basal ganglia are suggestive for prominent perivascular spaces. VENTRICLES: Unremarkable. No hydrocephalus. CALVARIUM: Unremarkable. PARANASAL SINUSES: Unremarkable as visualized. No significant inflammatory changes. MASTOID AIR CELLS: Unremarkable as visualized. No inflammatory changes. OTHER FINDINGS: None. IMPRESSION: No acute intracranial abnormality. Punctate hypodensities in the bilateral basal ganglia are suggestive for prominent perivascular spaces. If symptoms persist, consider correlation with MRI. These findings were preliminarily reported at 8:31 p.m. on 02/15/[address] Jeff Alvarez from [facility].
[2018-02-16 06:51] VITALS: BP 155/79; PULSE 76
--- NOTE | 2018-02-16 12:20 | HP ---
Copied To: Abdias Hauser MD Attending MD: Abdias Hauser MD CHIEF COMPLAINT: Intense nausea, vomiting, and shaking. HISTORY OF PRESENT ILLNESS: This is a 42-year-old male who has history of hypertension. He is compliant with diet, medication, and he uses marijuana, in his usual state of health, and he is ambulatory and independent in activities of daily living, and the patient came in because he is noncompliant and he has not been taking medication and he developed acute nausea, vomiting, abdominal pain, generalized weakness, tiredness, anorexia, malaise, and fatigue. Along with that, the patient was having shaking. He denies any fever, chills, or rigors. He denies any dysuria, hematuria, or polyuria. He denies any sneezing, itchy eyes, or itchy nose. There is no history of trauma, fall, or loss of consciousness. He denies any history of cough, sore throat, runny nose. He denies any history of polyuria, polydipsia, or polyphagia. He denies any history of hematuria or polyuria. ASSESSMENT: 1. Accelerated hypertension. 2. Substance abuse. 3. Gastritis. 4. Hypokalemia. PLAN: Admit. Detailed orders written. The patient was seen and examined. Discussed with the patient and his . Abdias Hauser MD
--- NOTE | 2018-02-16 13:38 | PN ---
Copied To: Deepak Prince MD Attending MD: Deepak Prince MD DATE: 02/16/2018 LOCATION: 671, bed B. SUBJECTIVE: This is a 42-year-old male seen and examined initially for GI consultation on 02/15/2018, reexamined again early today, was scheduled for upper endoscopy for potential evaluation of the upper GI tract due to the patient's current episode of nausea and vomiting, the patient refused. The entire chart is reviewed including but not limited to the most recent lab and radiology study results, current and the previous medication list, current and the previous medical events, and the latest amylase level was yesterday 144. PHYSICAL EXAMINATION: GENERAL: A 42-year-old male. VITAL SIGNS: Afebrile with pulse of 78, respiratory rate 18 to 20, blood pressure 150/76. HEENT: Showed dry, oral mucous membrane. Nonicteric sclerae. LUNGS: Few scattered crepitations. Decreased air entry at bases. HEART: Positive S1 and S2. ABDOMEN: Soft with slight generalized tenderness. No mass or organomegaly. No rebound tenderness or guarding. EXTREMITIES: Without significant clubbing, cyanosis, or edema. RECTAL: The patient refused. NEUROLOGIC: No significant new reported neurological deficits. IMPRESSION: 1. Re-exacerbation of peptic ulcer disease. 2. Reported episode of nausea, vomiting, and dizziness. The possibility of acute labyrinthitis was raised. 3. Known history of hypertension, bronchial asthma, and abdominal hernia repair. 4. Acute enteritis with elevated amylase level. SUGGESTIONS: 1. Agree with your plan. 2. Antireflux measure. 3. Neurology and MRI of the head to be ordered. 4. Zofran IV. 5. H2 obdulia IV. 6. Abdominal ultrasound with attention to biliary tree and pancreas. 7. Further recommendation to follow. The patient refused any aggressive GI workup or endoscopy. Deepak Prince MD
--- NOTE | 2018-02-16 20:13 | CARD ---
APPROVED REPORT Date of service: 02/15/2018 EKG Measurement Heart [id number] <Conclusion> Normal sinus rhythm Normal ECG
== END 2018-02-16 08:37 | disposition left against medical advice (07) ==
LOC: C.ER 12:54 → C.9E 17:19 → C.6T 18:45
PROVIDERS: ADMIT Internal Medicine; ATTEND Internal Medicine
DX: I10 Essential (primary) hypertension (principal); R42 Dizziness and giddiness; J45.909 Unspecified asthma, uncomplicated; K27.9 Peptic ulcer, site unspecified, unspecified as acute or chronic, without hemorrhage or perforation; K29.70 Gastritis, unspecified, without bleeding; K52.9 Noninfective gastroenteritis and colitis, unspecified; Z87.891 Personal history of nicotine dependence; Z91.19 Patient's noncompliance with other medical treatment and regimen; R07.9 Chest pain, unspecified; R74.8 Abnormal levels of other serum enzymes; E87.6 Hypokalemia; F12.90 Cannabis use, unspecified, uncomplicated
CPT/HCPCS: 70450; 71045; 80053; 80324; 80345; 80346; 80349; 80353; 80358; 80361; 81001; 82150; 83690; 83992; 84484; 85025; 85044; 93005; 96361; 96374; 96375; 96376; 99285; C9113; G0378; J1644; J1885; J1940; J2405; J3480; J7030

== ENCOUNTER 2018-02-17 11:18 | Observation (INO) | payer MEDICAID ==
[2018-02-17 11:23] VITALS: BMI 31.1
[2018-02-17] MEDS ORDERED: Labetalol 5 mg/ml Inj 20ML IV STA ×2 (12:35→13:34)
[2018-02-17] MEDS ORDERED: Aspirin 325 mg EC Tablets PO STA (12:35)
[2018-02-17] MEDS ORDERED: Labetalol 5 mg/ml Inj 20ML IV ONE (12:45)
[2018-02-17 12:48] LABS: BASO # 0.1 K/uL (0.0-0.2); BASO % 0.8 % (0.0-2.0); EOS % 0.3 % (0.0-4.0); HEMOGLOBIN 15.2 g/dL (12.0-18.0); LYMPH # 0.8 K/uL (1.0-4.3); LYMPH % 13.5 % (20.0-40.0); MEAN CELL VOLUME 90.4 fL (80.0-94.0); MEAN CORPUSCULAR HEMOGLOBIN 31.1 pg (27.0-31.0); MEAN CORPUSCULAR HGB CONC 34.4 g/dL (33.0-37.0); MEAN PLATELET VOLUME 9.2 fL (7.2-11.7); MONO # 0.4 K/uL (0.0-0.8); MONO % 6.1 % (0.0-10.0); NEUT # 4.9 K/uL (1.8-7.0); NEUT % 79.3 % (50.0-75.0); RBC 4.91 Mil/uL (4.40-5.90); RED CELL DISTRIBUTION WIDTH 13.8 % (11.5-14.5); WHITE BLOOD COUNT 6.2 K/uL (4.8-10.8)
[2018-02-17 13:11] LABS: ALB/GLOB RATIO 1.3 (1.0-2.1); ALBUMIN 4.8 g/dL (3.5-5.0); ALT/SGPT 40 U/L (21-72); AST/SGOT 49 U/L (17-59); BLOOD UREA NITROGEN 17 mg/dL (9-20); CALCIUM 9.6 mg/dl (8.6-10.4); GFR NON-AFRICAN AMERICAN > 60
--- NOTE | 2018-02-17 13:24 | C.PDOC ---
History Of Present Illness 42-year-old male, presents to the emergency department with complaints of chest pain that started around 09:00 this morning. Patient also notes a Hx of hypertension, and states he feels as though his pressure is high. Pt took his medication this morning, but does not remember the name of it. He denies any nausea/vomiting, fever. Time Seen by Provider: 02/17/18 11:56 Chief Complaint (Nursing): Chest Pain History Per: Patient History/Exam Limitations: no limitations Current Symptoms Are (Timing): Still Present Past Medical History Reviewed: Historical Data, Nursing Documentation, Vital Signs Vital Signs: Last Vital Signs Temp 98.3 F 02/17/18 11:26 Pulse 74 02/17/18 14:27 Resp 16 02/17/18 14:27 BP 194/136 H 02/17/18 14:27 Pulse Ox 96 02/17/18 14:27 - Medical History PMH: Asthma, HTN Surgical History: Hernia Repair Family History: States: No Known Family Hx - Social History Hx Tobacco Use: Yes Hx Alcohol Use: No Hx Substance Use: Yes (marijuana) - Immunization History Hx Tetanus Toxoid Vaccination: No Hx Influenza Vaccination: Yes Hx Pneumococcal Vaccination: No Review Of Systems Constitutional: Negative for: Fever, Chills Cardiovascular: Positive for: Chest Pain. Negative for: Palpitations Respiratory: Negative for: Shortness of Breath Gastrointestinal: Negative for: Nausea, Vomiting Musculoskeletal: Negative for: Neck Pain, Back Pain Neurological: Negative for: Weakness, Numbness, Headache, Dizziness Physical Exam - Physical Exam Appears: Non-toxic, No Acute Distress Skin: Normal Color, Warm, Dry, No Rash Head: Atraumatic Eye(s): bilateral: Normal Inspection Nose: Normal Oral Mucosa: Moist Lips: Normal Appearing Neck: Normal ROM Cardiovascular: Rhythm Regular, No Murmur Respiratory: Normal Breath Sounds, No Accessory Muscle Use Gastrointestinal/Abdominal: Soft, No Tenderness Back: Normal Inspection Extremity: Normal ROM, No Deformity Neurological/Psych: Oriented x3, Normal Speech ED Course And Treatment - Laboratory Results Result Diagrams: 02/17/18 12:43 02/17/18 12:43 ECG: Interpreted By Me, Viewed By Me ECG Rhythm: Sinus Rhythm ECG Interpretation: No Acute Changes Rate From EC O2 Sat by Pulse Oximetry: 96 Pulse Ox Interpretation: Normal (RA) Medical Decision Making Medical Decision Making: patient bp lowered 20-30 percent and okay for admission standpoint to telemetry Disposition Discussed With : Abdias Hauser Doctor Will See Patient In The: Hospital Counseled Patient/Family Regarding: Studies Performed, Diagnosis - Disposition Disposition: HOSPITALIZED Disposition Time: 13:24 Condition: FAIR - Clinical Impression Clinical Impression: Chest pain - Scribe Statement The provider has reviewed the documentation as recorded by the Scribe (Homar Mejia) All medical record entries made by the Scribe were at my direction and personally dictated by me. I have reviewed the chart and agree that the record accurately reflects my personal performance of the history, physical exam, medical decision making, and the department course for this patient. I have also personally directed, reviewed, and agree with the discharge instructions and disposition.
--- NOTE | 2018-02-17 14:13 | RAD ---
Date of service: 02/17/2018 PROCEDURE: CHEST RADIOGRAPH, 1 VIEW HISTORY: SOB COMPARISON: Chest radiograph dated 02/15/2018. FINDINGS: LUNGS: Clear. PLEURA: No pneumothorax or pleural fluid seen. CARDIOVASCULAR: Cardiomediastinal silhouette stably prominent. OSSEOUS STRUCTURES: No significant abnormalities. VISUALIZED UPPER ABDOMEN: Normal. OTHER FINDINGS: None. IMPRESSION: No active disease.
[2018-02-17] MEDS ORDERED: Nitroglycerin 2% Ointment Foilpak UD TOP ONE (14:55)
[2018-02-17] MEDS ORDERED: Nitroglycerin 2% Ointment Foilpak UD TOP STA (14:57)
[2018-02-17 15:58] LABS: BARBITURATES, UR NEGATIVE (NEGATIVE); BENZODIAZEPINES, UR NEGATIVE (NEGATIVE); OPIATES, UR NEGATIVE (NEGATIVE); PHENCYCLIDINE, UR NEGATIVE (NEGATIVE)
[2018-02-17] MEDS ORDERED: Nitroglycerin 2% Ointment Foilpak UD TOP PRN (16:07)
[2018-02-17] MEDS ORDERED: Iodixanol 320 MG/ML 100 ML BOTTLE IV ONE (18:54)
[2018-02-17 20:00] LABS: ABG ALLEN TEST P; ARTERIAL BLOOD GAS HCO3 26.8 mmol/L (21-28); ARTERIAL BLOOD GAS HEMOGLOBIN 14.1 g/dL (11.7-17.4); ARTERIAL BLOOD GAS O2 SAT 99.9 % (95-98); ARTERIAL BLOOD GAS PCO2 31 mm/Hg (35-45); ARTERIAL BLOOD GAS PH 7.51 (7.35-7.45); ARTERIAL BLOOD GAS PO2 120 mm/Hg (80-100); ARTERIAL BLOOD GAS TCO2 25.7 mmol/L (22-28)
--- NOTE | 2018-02-17 20:05 | CP.PCM.CON ---
History of Present Illness - History of Present Illness History of Present Illness: 42 y/o male with pmx of THC abuse, h/o HTN (uncontrolled) works as office worker for [employer] presents to [facility] with c/o nausea/vomitting and SOB. Patient was being managed for HTN. Patient was undergoing PE study with IV contrast. As per patient, when contrast pushed, his right arm became very cold (distal to proximal) and then patient passed out. (+)LOC, deneis any chest pain, denies any abdominal pain, denies any visual disturbance. RAPID response called. Review of Systems - Review of Systems Review of Systems: (+)LOC after IV contrast pushed Past Patient History - Infectious Disease Hx of Infectious Diseases: None - Tetanus Immunizations Tetanus Immunization: Unknown - Past Medical History & Family History Past Medical History?: Yes Pertinent Family History: father (+)HTN - Past Social History Smoking Status: Current Some Days Smoker Chewing Tobacco Use: No Alcohol: > 2 Drinks/Day Drugs: Cannabis - CARDIAC Hx Cardiac Disorders: No Hx Angina: No Hx Atrial Fibrillation: No Hx Cardia Arrhythmia: No Hx Circulatory Problems: No Hx Congestive Heart Failure: No Hx Heart Attack: No Hx Heart Murmur: No Hx Heart Transplant: No Hx Hypertension: Yes Hx Hypotension: No Hx Internal Defibrillator: No Hx Mitral Valve Prolapse: No - PULMONARY Hx Asthma: Yes - MUSCULOSKELETAL/RHEUMATOLOGICAL Hx Falls: No - PSYCHIATRIC Hx Substance Use: Yes (marijuana) - SURGICAL HISTORY Hx Surgeries: Yes Hx Herniorrhaphy: Yes - ANESTHESIA Hx Anesthesia: Yes Meds Allergies/Adverse Reactions: Allergies Allergy/AdvReac Type Severity Reaction Status Date / Time FISH Allergy Verified 08/30/17 09:24 shellfish derived Allergy Verified 08/30/17 09:24 - Medications Medications: Current Medications Acetaminophen (Tylenol 325mg Tab) 650 mg PO Q6 PRN PRN Reason: Headache Last Admin: 02/17/18 16:36 Dose: 650 mg Amlodipine Besylate (Norvasc) 5 mg PO DAILY [facility] Enoxaparin Sodium (Lovenox) 40 mg SC DAILY [facility] Hydralazine HCl (Apresoline) 50 mg PO Q8 [facility] Losartan Potassium (Cozaar) 100 mg PO DAILY [facility] Nitroglycerin (Nitro-Bid 2% Oint) 1 ea TOP Q6H PRN PRN Reason: Systolic Blood Pressure Physical Exam - Head Exam Head Exam: ATRAUMATIC, NORMAL INSPECTION, NORMOCEPHALIC - Eye Exam Eye Exam: EOMI Pupil Exam: NORMAL ACCOMODATION, PERRL - ENT Exam ENT Exam: Mucous Membranes Moist, Normal Exam - Neck Exam Neck exam: Positive for: Normal Inspection - Respiratory Exam Respiratory Exam: Clear to Auscultation Bilateral, NORMAL BREATHING PATTERN - Cardiovascular Exam Cardiovascular Exam: REGULAR RHYTHM, +S1, +S2, +S4 - GI/Abdominal Exam GI & Abdominal Exam: Normal Bowel Sounds, Soft - Extremities Exam Extremities exam: Positive for: normal inspection Results - Vital Signs Recent Vital Signs: Last Vital Signs Temp 98.4 F 02/17/18 16:30 Pulse 96 H 02/17/18 16:30 Resp 20 02/17/18 16:30 BP 158/96 H 02/17/18 18:10 Pulse Ox 98 02/17/18 16:30 - Labs Result Diagrams: 02/17/18 12:43 02/17/18 12:43 Labs: Laboratory Results - last 24 hr 02/17/18 02/17/18 02/17/18 12:43 12:43 15:28 WBC 6.2 RBC 4.91 Hgb 15.2 Hct 44.3 MCV 90.4 MCH 31.1 H MCHC 34.4 RDW 13.8 Plt Count 205 MPV 9.2 Neut % (Auto) 79.3 H Lymph % (Auto) 13.5 L Anderson % (Auto) 6.1 Eos % (Auto) 0.3 Baso % (Auto) 0.8 Neut # (Auto) 4.9 Lymph # (Auto) 0.8 L Anderson # (Auto) 0.4 Eos # (Auto) 0.0 Baso # (Auto) 0.1 Puncture Site pCO2 pO2 HCO3 ABG pH ABG Total CO2 ABG O2 Saturation ABG Base Excess ABG Hemoglobin ABG Carboxyhemoglobin POC ABG HHb (Measured) ABG Methemoglobin Lorenzo Test A-a O2 Difference Respiratory Index Hgb O2 Saturation Liter Flow FiO2 Sodium 139 Potassium 4.4 Chloride 101 Carbon Dioxide 24 Anion Gap 18 BUN 17 Creatinine 1.0 Est GFR ( Amer) > 60 Est GFR (Non-Af Amer) > 60 Random Glucose 108 Calcium 9.6 Total Bilirubin 1.2 AST 49 ALT 40 Alkaline Phosphatase 88 Troponin I 0.0180 NT-Pro-B Natriuret Pep 39.0 Total Protein 8.5 H Albumin 4.8 Globulin 3.7 Albumin/Globulin Ratio 1.3 TSH 3rd Generation 0.56 Urine Opiates Screen Negative Urine Methadone Screen Negative Ur Barbiturates Screen Negative Ur Phencyclidine Scrn Negative Ur Amphetamines Screen Negative U Benzodiazepines Scrn Negative U Oth Cocaine Metabols Negative U Cannabinoids Screen Positive H 02/17/18 19:56 WBC RBC Hgb Hct MCV MCH MCHC RDW Plt Count MPV Neut % (Auto) Lymph % (Auto) Anderson % (Auto) Eos % (Auto) Baso % (Auto) Neut # (Auto) Lymph # (Auto) Anderson # (Auto) Eos # (Auto) Baso # (Auto) Puncture Site Lr pCO2 31 L pO2 120 H HCO3 26.8 ABG pH 7.51 H ABG Total CO2 25.7 ABG O2 Saturation 99.9 H ABG Base Excess 2.4 ABG Hemoglobin 14.1 ABG Carboxyhemoglobin 2.2 H POC ABG HHb (Measured) 0.1 ABG Methemoglobin 1.2 Lorenzo Test P A-a O2 Difference 69.0 Respiratory Index 0.6 Hgb O2 Saturation 96.5 Liter Flow 3.0 FiO2 32.0 Sodium Potassium Chloride Carbon Dioxide Anion Gap BUN Creatinine Est GFR ( Amer) Est GFR (Non-Af Amer) Random Glucose Calcium Total Bilirubin AST ALT Alkaline Phosphatase Troponin I NT-Pro-B Natriuret Pep Total Protein Albumin Globulin Albumin/Globulin Ratio TSH 3rd Generation Urine Opiates Screen Urine Methadone Screen Ur Barbiturates Screen Ur Phencyclidine Scrn Ur Amphetamines Screen U Benzodiazepines Scrn U Oth Cocaine Metabols U Cannabinoids Screen Assessment & Plan - Assessment and Plan (Free Text) Assessment: Vaso vagal syncope after IV contrast: Patient notes he is allergic to shellfish. Patient seems better, vasovagal effect resovled., neurology eval pending -HTN: uncontrolled: continue his anti-hypertensive medications -NPO -IV solumedrol -IVF post IV contrast contineu dvt/pud ppx -Patient will benefit from ICU level close monitoring for first 24 hours for delayed reactions. d/w nursing. - Date & Time Date: 02/17/18 Time: 20:11
--- NOTE | 2018-02-17 20:08 | PCM.RRT ---
NEGATIVE DEVELOPER Nurses Assessment - Situation Date: 02/17/18 Time NEGATIVE DEVELOPER was called: 19:03 New IV Insertion Tolerance: Good - Neurological Status (Select all that apply): Alert, Oriented, Verbal, Follows Commands - Constitutional Appears: No Acute Distress - Head Head Exam: ATRAUMATIC, NORMAL INSPECTION, NORMOCEPHALIC - Eyes Eye Exam: Normal appearance - Respiratory Exam Respiratory Exam: NORMAL BREATHING PATTERN. absent: Rales, Rhonchi, Wheezes - Cardiovascular Exam Cardiovascular Exam: Tachycardia. absent: Irregular Rhythm - Neurological Exam Neurological Exam: Alert, Awake, Oriented x3 Plan - Assessment of Findings&Treatment Plan NEGATIVE DEVELOPER called for syncope at CT scan room 2. NEGATIVE DEVELOPER upgraded to code manish. Upon arrival, patient was awake & alert w/ no chest compressions performed. Code blue cancelled. Patient vitals assessed: HR 100, BP 138/76, Sat 100% on RA Patient was stable, awake & oriented X3. Patient was return to room with no issues. Message left for call back on Dr. Nick Hauser answering service.
[2018-02-17] MEDS ORDERED: MethylPREDNISolone 40 mg Vial IM STA ×2 (20:12→21:29)
[2018-02-17] MEDS ORDERED: Sodium Chloride 0.9% 1,000 ML IV SCH (20:15)
[2018-02-17 20:22] LABS: CK-MB 0.98 ng/mL (0.0-3.38); TROPONIN I 0.019 ng/mL (0.00-0.120)
--- NOTE | 2018-02-18 05:11 | CON ---
Copied To: Javier Blanc MD Attending MD: Javier Blanc MD DATE: 02/17/2018 REASON FOR CONSULTATION: Chest pain and hypertension. HISTORY OF PRESENT ILLNESS: The patient is a 42 years old -[place] male who has history of hypertension. He is a smoker and smokes marijuana, presented because of steady, sharp chest pain. The patient is unaware of any prior cardiac history. The patient was admitted two days ago for uncontrolled hypertension and chest pain; however, he signed against medical advice before I had chance to evaluate him. The patient on all his drug screens that were done in the hospital, 4 of the drug screens were positive for cannabinoids. SOCIAL HISTORY: The patient is a smoker. He is nondrinker. MEDICATIONS: Hydralazine 50 mg every 8 hours, Cozaar 100 mg once a day, Lovenox 40 mg subcutaneously once a day, Norvasc 5 mg once a day. REVIEW OF SYSTEMS: No nausea or vomiting. No fever or chills. PHYSICAL EXAMINATION: GENERAL: The patient is a middle-aged male who does not appear to be in any distress at this time. VITAL SIGNS: Blood pressure 138/105, heart rate 96, temperature 98.4 and respirations 20. HEENT: Head is normocephalic. CHEST: Clear. HEART: S1 and S2 are regular. No gallop or rub. ABDOMEN: Soft. EXTREMITIES: No edema. LABORATORY DATA: SMA-7 today is entirely within normal limits. One set of troponin is negative. Two sets of troponins during the most recent admission two days ago were negative. TSH level today is within normal limit. Hemoglobin, hematocrit, white count and platelet count are within normal limit. Chest x-ray was unremarkable. EKG revealed sinus rhythm, possible left atrial enlargement. Echocardiographic study performed in 08/2017, revealed mild concentric LVH with ejection fraction estimated at 54.8%. Recent head CT scan done two days ago revealed no acute intracranial abnormality, punctate hypodensities in the bilateral basal ganglia are suggestive for prominent perivascular spaces. ASSESSMENT: 1. Chest pain rule out myocardial infarction. 2. Rule out pulmonary infarction. 3. Cannabinoid abuse. 4. Hypertension. RECOMMENDATIONS: Continue hydralazine 50 mg every 8 hours, Cozaar 100 mg once a day and Norvasc 5 mg once a day. The patient received aspirin 325 mg in the emergency room and we will start 81 mg once a day. In the meantime, I will request stat CT angio to rule out pulmonary embolism. The chest pain that the patient experiencing is unlikely to be secondary to coronary ischemia; however, further workup will be considered following the CT angio study. Javier Blanc MD
[2018-02-18 06:16] VITALS: O2SAT 98
[2018-02-18 08:16] LABS: BASO % 0.1 % (0.0-2.0); HEMOGLOBIN 14.7 g/dL (12.0-18.0); LYMPH # 0.7 K/uL (1.0-4.3); MEAN CELL VOLUME 90.8 fL (80.0-94.0); MEAN CORPUSCULAR HGB CONC 34.1 g/dL (33.0-37.0); MEAN PLATELET VOLUME 8.8 fL (7.2-11.7); MONO # 0.5 K/uL (0.0-0.8); MONO % 6.3 % (0.0-10.0); NEUT # 6.4 K/uL (1.8-7.0); NEUT % 84.6 % (50.0-75.0); PLATELET COUNT 210 K/uL (130-400); RBC 4.74 Mil/uL (4.40-5.90); RED CELL DISTRIBUTION WIDTH 13.7 % (11.5-14.5); WHITE BLOOD COUNT 7.6 K/uL (4.8-10.8)
[2018-02-18 08:45] LABS: ALB/GLOB RATIO 1.3 (1.0-2.1); ALBUMIN 4.6 g/dL (3.5-5.0); ALT/SGPT 37 U/L (21-72); AST/SGOT 36 U/L (17-59); BLOOD UREA NITROGEN 16 mg/dL (9-20); CALCIUM 9.6 mg/dl (8.6-10.4); GFR NON-AFRICAN AMERICAN > 60
[2018-02-18 08:50] LABS: CK-MB 0.71 ng/mL (0.0-3.38)
--- NOTE | 2018-02-18 08:51 | CT ---
Date of service: 02/17/2018 PROCEDURE: CT Chest with contrast (Pulmonary Angiogram) HISTORY: r/o PE COMPARISON: None available. TECHNIQUE: Axial computed tomography images were obtained of the chest in the pulmonary arterial phase of enhancement. Coronal and sagittal reformatted images were created and reviewed. Intravenous contrast dose: 100 cc Visipaque 320 Radiation dose: Total exam DLP = 602.44 mGy-cm. This CT exam was performed using one or more of the following dose reduction techniques: Automated exposure control, adjustment of the mA and/or kV according to patient size, and/or use of iterative reconstruction technique. FINDINGS: PULMONARY ARTERIES: Visualized pulmonary trunk, right and left main, lobar, segmental and proximal subsegmental branches of the pulmonary arteries are well opacified with no definitive filling defects seen to suggest acute pulmonary embolus. Pulmonary trunk measures approximately 3.1 cm. AORTA: No acute findings. No thoracic aortic aneurysm. Ascending thoracic aorta measures approximately 3.3 cm and descending thoracic aorta measures a 2.9 cm. LUNGS: Minor passive/ dependent type atelectasis both posterior lower lung jasso. . PLEURAL SPACES: Unremarkable. No effusion or pneumothorax. HEART: Heart is mildly enlarged. No significant pericardial effusion. LYMPH NODES: No significant mediastinal or hilar adenopathy Central airways midline and patent. There are no large central endoluminal lesions. Small hiatal hernia. BONES, CHEST WALL: Unremarkable. No fracture or destructive lesion OTHER FINDINGS: Unremarkable. IMPRESSION: Unremarkable CT pulmonary angiogram. No pulmonary embolus.
[2018-02-18] MEDS ORDERED: Enoxaparin 40 mg Syringe SC SCH (10:00)
[2018-02-18 10:06] VITALS: BP 161/70; PULSE 78; RESP 18; TEMP 98.9
[2018-02-18 10:15] LABS: LYMPHOCYTE 10 % (20-40); MONOCYTE 4 % (0-10); NEUTROPHIL 86 % (50-75); TOTAL CELLS COUNTED 100
[2018-02-18 10:16] LABS: PLATELET ESTIMATE NORMAL (NORMAL)
--- NOTE | 2018-02-20 11:24 | CARD ---
APPROVED REPORT Date of service: 02/18/2018 EXAM: Two-dimensional and M-mode echocardiogram with Doppler and color Doppler. Other Information Quality : GoodRhythm : INDICATION Chest Pain RISK FACTORS Hypertension 2D DIMENSIONS IVSd1.6 (0.7-1.1cm)Aortic Root (2D)3.8 (2.0-3.7cm) LVDd4.2 (3.9-5.9cm)LVOT Diameter2.5 (1.8-2.4cm) PWd1.7 (0.7-1.1cm)LVDs2.8 (2.5-4.0cm) FS (%) 33.9 %LVEF (%)63.3 (>50%) M-Mode DIMENSIONS Left Atrium (MM)4.06 (2.5-4.0cm)Aortic Root4.02 (2.2-3.7cm) Aortic Cusp Exc.2.18 (1.5-2.0cm) Mitral Valve MV E Qouxkisp85.2cm/sMV A Oakixixv39.9cm/sE/A ratio1.2 TDI E/Lateral E'0.0E/Medial E'0.0 Tricuspid Valve TR Peak [id number] Peak [id number] LEFT VENTRICLE The left ventricle is normal size. There is normal left ventricular wall thickness. The left ventricular function is normal. The left ventricular ejection fraction is within the normal range. There is normal LV segmental wall motion. The left ventricular diastolic function is normal. RIGHT VENTRICLE The right ventricle is normal size. ATRIA The left atrium is borderline dilated. The right atrium size is normal. AORTIC VALVE The aortic valve is normal in structure. MITRAL VALVE The mitral valve is normal in structure. TRICUSPID VALVE There is trace tricuspid regurgitation. GREAT VESSELS The aortic root is mildly enlarged. <Conclusion> Normal LV systolic function. Borderline dilated LA. Borderline dilated Aortic rooot. No significnat valvular abnormality seen.
--- NOTE | 2018-02-21 22:16 | CARD ---
APPROVED REPORT Date of service: 02/17/2018 EKG Measurement Heart [id number] <Conclusion> Normal sinus rhythm Normal ECG
--- NOTE | 2018-02-21 22:29 | CARD ---
APPROVED REPORT Date of service: 02/17/2018 EKG Measurement Heart [id number] <Conclusion> Normal sinus rhythm Possible Left atrial enlargement Borderline ECG
== END 2018-02-18 11:00 | disposition left against medical advice (07) ==
LOC: C.ER 11:18 → C.9E 13:23 → UNDOADMIN 13:23 → C.5S 15:24
PROVIDERS: ADMIT Internal Medicine; ATTEND Internal Medicine
DX: R07.9 Chest pain, unspecified (principal); R55 Syncope and collapse; T50.8X5A Adverse effect of diagnostic agents, initial encounter; I10 Essential (primary) hypertension; J45.909 Unspecified asthma, uncomplicated; F12.10 Cannabis abuse, uncomplicated; F17.200 Nicotine dependence, unspecified, uncomplicated; Z82.49 Family history of ischemic heart disease and other diseases of the circulatory system; Z91.013 Allergy to seafood
CPT/HCPCS: 36415; 71045; 71275; 80053; 80324; 80345; 80346; 80349; 80353; 80358; 80361; 82803; 83605; 83735; 83880; 83992; 84100; 84443; 84484; 85025; 93306; 99285; G0378; J2920; J7030; Q9967